=== PATIENT | female | born 1980 | race Caucasian/White ===

== ENCOUNTER 2018-01-12 07:06 | Emergency (ER) | payer SELFPAY ==
[2018-01-12] MEDS ORDERED: ONDANSETRON INJ 4 MG/2 ML VIAL IV ONE (07:29)
[2018-01-12] MEDS ORDERED: SODIUM CHLORIDE 0.9% 1000ML 1,000 ML IVS ONE (07:29)
[2018-01-12] MEDS ORDERED: KETOROLAC TROMETHAMINE INJ 30 MG/ML VIAL IV ONE (07:29)
[2018-01-12] MEDS ORDERED: SODIUM CHLORIDE 0.9% (FLUSH) 10 ML SYG IV PRN (07:29)
--- NOTE | 2018-01-12 08:07 | ED.PDOC ---
History of Present Illness - General Chief Complaint: Abdominal Pain Stated Complaint: abdominal pain Time Seen by Provider: 01/12/18 07:29 Information Source: patient Exam Limitations: no limitations - History of Present Illness Initial Comments: PT REPORTS 1 DAY HISTORY OF PROGRESSIVELY WORSENING ABDOMINAL PAIN. PT REPORTS PAIN BEGAN IN THE EPIGASTRIC REGION AND HAS NOW MIGRATED TO THE RLQ. SYMPTOMS ARE ASSOCIATED WITH NAUSEA AND LOSS OF APPETITE. Abdominal Pain Onset Location: epigastric Pain Radiation: RLQ Quality: severe, stabbing, throbbing Timing/Duration: getting worse, changing over time Improving Factors: medication Worsening Factors: movement Associated Symptoms: nausea/vomiting Review of Systems - Review of Systems Constitutional: Denies: chills, fever EENTM: Denies: nose congestion, throat pain Respiratory: Denies: cough, short of breath Cardiology: Denies: chest pain, palpitations Gastrointestinal/Abdominal: States: see HPI, abdominal pain, nausea. Denies: vomiting Genitourinary: Denies: dysuria, frequency Musculoskeletal: Denies: joint pain, joint swelling Skin: Denies: change in color, dryness Neurological: Denies: headache, numbness Endocrine: States: no symptoms reported Hematologic/Lymphatic: States: no symptoms reported Past Medical History (General) - Patient Medical History Hx Seizures: No Hx Stroke: No Hx Dementia: No Hx Asthma: No Hx Cardiac Disorders: No Hx Congestive Heart Failure: No Hx Hypertension: No Hx Diabetes: No Hx Renal Disease: No Surgical History: tonsillectomy, other Family Medical History - Family History Mother Family History: No Known Physical Exam - Physical Exam General Appearance: Alert, Obvious distress, Well Developed, Well Groomed, Well Hydrated Eyes, Ears, Nose, Throat Exam: normal ENT inspection Neck: normal inspection Respiratory: normal breath sounds, no respiratory distress Cardiovascular/Chest: no murmur, tachycardia Gastrointestinal/Abdominal: soft, tenderness - IN THE RLQ, NO REBOUND, NO GUARDING Back Exam: normal inspection Extremity: normal inspection Neurologic: alert, normal mood/affect, oriented x 3 Skin Exam: normal color, warm/dry Progress - Progress Progress: 01/12/18 09:39 PT REPORTS SIGNIFICANT IMPROVEMENT IN PAIN ON RE-EVAL. LABS AND CT FINDINGS DISCUSSED. DISCUSSED PLAN TO TRANSFER TO [facility] FOR SURGERY. - Results/Orders Results/Orders: 01/12/18 07:29 IV Care:Saline Lock per Protoc QSHIFT Sodium Chloride 0.9% (Flush) [Saline Flush Syringe] 10 ml IV PRN PRN 01/12/18 07:30 Hold Metformin x 48Hrs [id number] EKG STAT 01/12/18 09:09 Piperacillin/Tazobactam [Zosyn] 3.375 gm Sodium Chloride 0.9% 100Ml [NS (NACL 0.9%) 100ml] 100 ml IVPB ONCE Laboratory Results - last 24 hr 01/12/18 01/12/18 01/12/18 07:30 07:30 07:30 WBC 12.6 H RBC 4.49 Hgb 13.7 Hct 39.9 MCV 89.0 MCH 30.4 MCHC 34.2 RDW 12.5 Plt Count 204 MPV 7.7 Absolute Neuts (auto) 10.10 H Absolute Lymphs (auto) 1.30 Absolute Monos (auto) 0.90 H Absolute Eos (auto) 0.20 Absolute Basos (auto) 0.00 Neutrophils % 80.2 H Lymphocytes % 10.6 L Monocytes % 6.9 Eosinophils % 1.9 Basophils % 0.4 Sodium 133 L Potassium 3.6 Chloride 100 L Carbon Dioxide 21 Anion Gap 15.6 BUN 9 Creatinine 0.72 BUN/Creatinine Ratio 12.5 Random Glucose 115 H Serum Osmolality 266.0 L Calcium 9.3 Total Bilirubin Direct Bilirubin Indirect Bilirubin AST ALT Alkaline Phosphatase Serum Total Protein Albumin Lipase Serum HCG, Qual Negative Urine Color Urine Appearance Urine pH Ur Specific [place] Urine Protein Urine Glucose (UA) Urine Ketones Urine Blood Urine Nitrite Urine Bilirubin Urine Urobilinogen Ur Leukocyte Esterase Urine RBC Urine WBC Ur Epithelial Cells Urine Bacteria 01/12/18 01/12/18 07:30 07:31 WBC RBC Hgb Hct MCV MCH MCHC RDW Plt Count MPV Absolute Neuts (auto) Absolute Lymphs (auto) Absolute Monos (auto) Absolute Eos (auto) Absolute Basos (auto) Neutrophils % Lymphocytes % Monocytes % Eosinophils % Basophils % Sodium Potassium Chloride Carbon Dioxide Anion Gap BUN Creatinine BUN/Creatinine Ratio Random Glucose Serum Osmolality Calcium Total Bilirubin 0.8 Direct Bilirubin < 0.1 Indirect Bilirubin 0.7 AST 20 ALT 14 Alkaline Phosphatase 71 Serum Total Protein 7.2 Albumin 4.2 Lipase 15 L Serum HCG, Qual Urine Color Yellow Urine Appearance Clear Urine pH 5.5 Ur Specific [place] 1.015 Urine Protein Negative Urine Glucose (UA) Negative Urine Ketones Negative Urine Blood Small H Urine Nitrite Negative Urine Bilirubin Negative Urine Urobilinogen 0.2 Ur Leukocyte Esterase Negative Urine RBC 1-3 Urine WBC 1-3 Ur Epithelial Cells 10-20 Urine Bacteria 1+ - EKG/XRAY/CT EKG: Sinus, Tachy - @138BPM, NL INTERVALS, NL AXIS, no ST T wave changes - NO OLD FOR COMPARISON Departure - Departure Clinical Impression: Acute appendicitis Time of Disposition: 09:11 Disposition: Transfer to Hospital Condition: Fair Departure Forms: ED Discharge - Pt. Copy, Patient Portal Self Enrollment Instructions: DI for Abdominal Pain-Adult Transfer to Outside Facility - Transfer Information Accepting Provider:: DR. STEINER Accepting Facility: [facility] Reason for Transfer: required specialist not available - SURGEON
[2018-01-12 08:17] VITALS: O2SAT 97
--- NOTE | 2018-01-12 08:58 | CT ---
EXAM DESCRIPTION: Abdomen/Pelvis w/Contrast CLINICAL HISTORY: RLQ pain, r/o appy COMPARISON: None Available TECHNIQUE: CT of the abdomen and Pelvis was performed with IV contrast. This exam was performed according to our departmental dose-optimization program, which includes automated exposure control, adjustment of the mA and/or kV according to patient size and/or use of iterative reconstruction technique. FINDINGS: The appendix is slightly dilated with subtle periappendiceal inflammation consistent with acute appendicitis. Radiodense material in the appendiceal lumen proximally suggests an elongated appendicolith. No abscess or pneumoperitoneum. The appendix extends posteriorly, medially and slightly superiorly from its cecal origin, lying just anterior to the right external iliac vessels. No dilated small bowel loops or ascites. No colonic wall thickening. The uterus and ovaries are unremarkable for patient's age. No bladder wall thickening. No calcified gallstone. The liver, spleen, pancreas, adrenals and kidneys are unremarkable. No lung base abnormality. IMPRESSION: Acute appendicitis without abscess, pneumoperitoneum or other complication. Emergent surgical consultation recommended. Findings were reported by telephone to Renetta, the ER nurse, by wa at the time of this dictation. Dr. Anne was unavailable at the time of the call. Electronically signed by: Ravin Mccord MD 01/12/2018 8:57 AM [employer]
[2018-01-12] MEDS ORDERED: PIPERACILLIN/TAZOBACTAM 3.375 GM in SODIUM CHLORIDE 0.9% 100ML 100 ML IVPB ONE (09:09)
[2018-01-12] MEDS ORDERED: PIPERACILLIN/TAZOBACTAM 3.375 GM VIAL IVPB ONE (09:16)
[2018-01-12] MEDS ORDERED: SODIUM CHLORIDE 0.9% 100ML 100 ML IVPB ONE (09:16)
[2018-01-12 10:00] VITALS: BP 106/75; TEMP 99.2
== END 2018-01-12 10:18 | disposition short-term general hospital (02) ==
LOC: ER 07:06
DX: K35.80 Unspecified acute appendicitis (principal)
CPT/HCPCS: 36415; 74177; 80048; 80076; 81001; 83690; 84703; 85025; 93005; J1885; J2405; J2543; J7030; J7050